=== PATIENT | female | born 1955 | race Caucasian/White ===

== ENCOUNTER 2023-09-12 13:58 | Emergency (ER) | payer MEDICARE, OTHER, SELFPAY ==
[2023-09-12 14:00] VITALS: BP 157/86
[2023-09-12 16:21] LABS: % Basophils 0.9 % (0-2); % Eosinophils 2.3 % (0-6); % Immature Granulocytes 1.7 % (0-0.5); % Lymphocytes 9.4 % (20.5-51.1); % Monocytes 7.8 % (1.7-9.3); % Neutrophils 77.9 % (42.2-75.2); Absolute Basophils 0.1 10^3/uL (0-0.2); Absolute Eosinophils 0.3 10^3/uL (0-0.7); Absolute Immature Granulocytes 0.2 10^3/uL (0-0.05); Absolute Lymphocytes 1.1 10^3/uL (1.2-3.4); Absolute Monocytes 0.9 10^3/uL (0.1-0.6); Absolute Neutrophils 9.4 10^3/uL (1.4-6.5); Hematocrit 40.5 % (37.0-47.0); Hemoglobin 13.9 g/dL (12.0-16.0); Mean Corp Hgb Conc. 34.3 g/dL (33.0-37.0); Mean Corpuscular Hgb 30.1 pg (27.0-31.0); Mean Corpuscular Volume 87.7 fL (81.0-99.0); Mean Platelet Volume 10.9 fL (7.4-10.4); Nucleated Red Blood Cells % 0 %; Platelet Count 212 10^3/uL (130-400); Red Blood Cell Count 4.62 10^6/uL (4.20-5.40); Red Cell Dist. Width 15.1 % (11.5-14.5); White Blood Cell Count 12.1 10^3/uL (4.8-10.8)
--- NOTE | 2023-09-12 16:24 | ED.GENMED ---
History of Present Illness
General
Chief Complaint: Eye Problems
Source: patient, spouse and other (Family friend)
Time Seen by Provider: 09/12/23 15:46
Travel History
Have you had any contact with someone who has COVID-19?: No
Do you have any symptoms of coronavirus? Fever > 100 degrees, chills, cough, shortness of breath, sore throat, loss of taste or smell, muscle aches, or headache?: No
History of Present Illness
History of Present Illness:
68-year-old female with past medical history of hypertension senting to the emergency department for evaluation after she was getting dental work done and during part of the tooth extraction was having air and water injected into the open cavity
when she developed sudden right eye periorbital edema that her dentist was concerned to be orbital emphysema and was advised to come to the ER for further evaluation. Patient notes that within the hour of coming to the emergency department the
swelling has improved, initially noting that her eye was swollen shut and was unable to see out of the eye due to the amount of swelling. Patient notes no blurred vision, double vision, pain, fevers or any other concerns. She did not have any
swelling prior to the dental work being completed.
Past History
Past History
ED Past Medical History: HTN
ED Past Surgical History: Cardiac
Social History
Tobacco: Non-smoker
Alcohol: Occasional
Drug: None
Personal:
Living: with family
Review of Systems
Review of Systems
All Other Systems: ROS reviewed and negative except as documented in HPI and ROS
Phy Exam
Physical Exam
Physical Exam:
GENERAL: Alert , in no apparent distress
EYE: conjunctiva clear, pupils 3 mm bilateral, EOMI, right-sided periorbital edema with crepitus to the upper and lower lids but without any pain/erythema or breaks in the skin, gross vision intact
Head: Normocephalic atraumatic
NECK: Supple,
ENT: mmm.
LUNGS: no acute respiratory distress
NEUROLOGICAL: Alert and oriented
SKIN: Warm and dry, skin intact.
MUSCULOSKELETAL: well perfused.
PSYCH: Normal and appropriate interaction.
Scores
Heart Failure Risk
Heart Failure Risk Score: Not Applicable
Heart Score for Chest Pain Patients
STEMI patient?: Not applicable
Withdrawal Assessment of Alcohol
Withdrawal Assessment Completed?: Not applicable
Course
Orders/Labs/Results
Orders:
Orders
09/12/23 16:15
Basic Metabolic Panel Urgent
Complete Blood Count/With Diff Urgent
Abnormal Lab Results
09/12/23
16:15
WBC 12.1 H 10^3/uL
(4.8-10.8)
RDW 15.1 H %
(11.5-14.5)
MPV 10.9 H fL
(7.4-10.4)
Abs Immat Gran (auto) 0.2 H 10^3/uL
(0-0.05)
Absolute Neuts (auto) 9.4 H 10^3/uL
(1.4-6.5)
Absolute Lymphs (auto) 1.1 L 10^3/uL
(1.2-3.4)
Absolute Monos (auto) 0.9 H 10^3/uL
(0.1-0.6)
Immature Gran % 1.7 H %
(0-0.5)
Neutrophils % 77.9 H %
(42.2-75.2)
Lymphocytes % 9.4 L %
(20.5-51.1)
Carbon Dioxide 21 L mmol/L
(22-30)
BUN 23 H mg/dl
(7-17)
Creatinine 1.2 H mg/dL
(0.6-1.0)
Glucose 112 H mg/dl
(70-99)
Calcium 11.1 H mg/dl
(8.4-10.2)
09/12/23 16:15
09/12/23 16:15
Vital Signs
Initial and Last Documented VS:
Initial Vital Signs
Temp Pulse Resp BP Pulse Ox
98.0 F 70 18 157/86 98
09/12/23 14:00 09/12/23 14:00 09/12/23 14:00 09/12/23 14:00 09/12/23 14:00
Last Documented Vital Signs
Temp Pulse Resp BP Pulse Ox
98.0 F 70 18 157/86 98
09/12/23 14:00 09/12/23 14:00 09/12/23 14:00 09/12/23 14:00 09/12/23 14:00
Garbage Person consulted with Physician
Garbage Person consulted with physician?: Yes
Name of Physician Consulted: Noh
MDM/Problems Addressed
Differential Diagnosis Includes:
Orbital edema secondary to air infiltration, given the acute nature of the symptoms during the dental work I am less concerned for an infectious process or musculoskeletal injury
MDM/Problems Addressed:
68-year-old female presenting to the ER from dentist office after having dental work done and having suspected air infiltration into the orbital cavity. She has crepitus on exam. No gross visual deficits. No signs of infection. Case was
discussed with on-call OMFS team to discuss management and ultimately discussion centered around whether patient needed any CT imaging to further evaluate. Using shared decision making with the patient we ultimately decided that we would be
starting antibiotics for infection prevention regardless of what the CT showed which we suspect would only show air within the periorbital spaces. Patient decided she would like to forego CAT scan. Prescription for Augmentin to be started.
Patient will follow-up closely with her dentist. She is aware of return precautions emergency department. We also advised to try and keep her head elevated as well as ice to help with the swelling.
*Pulse Oximetry
Patient hypoxic: no
*Critical Care Note
Total Time (30-74mins, 75-104mins- exclusive of procedures): Not Applicable
ED Attending Note
-
Portions of this chart may have been created with voice recognition software.� Occasional wrong word or��sound alike� substitutions may have occurred due to the inherent limitations of voice recognition software.
Discharge Plan
Departure
Patient Disposition: Home (Routine Discharge)
Date of Disposition: 09/12/23
Time of Disposition: 16:24
Patient with high blood pressure during this ER visit?: Yes
Discharge Problem:
Edema of right orbit
Prescriptions:
New
amoxicillin-pot clavulanate 875-125 mg tablet
1 tab PO BID 5 Days Qty: 10 0RF
Referrals:
Jose Lopez DO [Family Provider] -
Interventions
Interventions:
*Risk Screen - Suicide Last Done: 09/12/23 14:00
*General Assessment Last Done: 09/12/23 14:00
*Neglect/Abuse Screening Last Done: 09/12/23 14:00
ED- Fall Risk Assessment Last Done: 09/12/23 16:29
*ED COVID-19 Vaccine History Last Done: 09/12/23 14:00
*Nursing Disposition Last Done: 09/12/23 16:29
Discharge Date and Time
Discharge Date/Time: 09/12/23 16:30
Print Language: FAROESE
[2023-09-12 16:33] LABS: Blood Urea Nitrogen 23 mg/dl (7-17); Calcium 11.1 mg/dl (8.4-10.2); Carbon Dioxide 21 mmol/L (22-30); Chloride 104 mmol/L (98-107); Glucose 112 mg/dl (70-99); Potassium 4.4 mmol/L (3.5-5.1); Sodium 135 mmol/L (135-145)
== END 2023-09-12 16:30 | disposition home or self-care (01) ==
LOC: EMR 13:58
PROVIDERS: Physician Assistant Medical; EMERGENCY PHYSICIAN Emergency Medicine; FAMILY PHYSICIAN Family Medicine
DX: H05.221 Edema of right orbit (principal); I10 Essential (primary) hypertension
CPT/HCPCS: 99283; 80048; 85025